=== PATIENT | male | born 1955 | race Caucasian/White ===

== ENCOUNTER → 2021-07-14 16:09 | Outpatient (CLI) | payer BC, SELFPAY ==
--- NOTE | 2021-07-14 16:29 | VDLE_ITS ---
Reason For Study: edema Procedure LEFT This is a venous duplex using B-mode, color GSV is normal. flow and spectral Doppler. CFV is compressible, spontaneous, phasic, Exam performed in department. competent, and demonstrates normal The exam was abbreviated due to the COVID 19 augmentation. protocol. FV is compressible, spontaneous, phasic, The exam was diagnostic. competent and demonstrates normal A preliminary report was called and/or faxed augmentation. to Dr. Mueller. POP V is compressible, spontaneous, phasic, competent and demonstrates normal augmentation. T/P Trunk is compressible. PTV is compressible. LT PerV is compressible. VL/Venous Duplex US, Unilateral Interpretation Summary There is no evidence of left lower extremity deep vein thrombosis. Left great s aphenous vein appears patent and compressible segmentally. Abreviated Covid 19 protocol utilized Ordering Physician: Kings Mueller Performed By: Jung Sosa RVT
== END ==
PROVIDERS: PCP Family Medicine Geriatric Medicine; Referring Provider Family Medicine Geriatric Medicine; Visit Provider Family Medicine Geriatric Medicine
DX: R60.0 Localized edema (principal)
CPT/HCPCS: 93971

== ENCOUNTER → 2021-07-14 16:43 | Outpatient (CLI) | payer BC, SELFPAY ==
[2021-07-14 17:13] LABS: Absolute Lymphocyte Count 1.23 X10^3/uL (0.83-4.51); Absolute Neutrophil Count 3.1 X10^3/uL (2.0-7.7); Basophil# 0.01 X10^3/uL; Basophil% 0.2 % (0-1); Eosinophil# 0.01 X10^3/uL; Eosinophils% 0.2 % (0-5); Hematocrit 15.9 % (40-54); Lymphocyte # 1.23 X10^3/ul (0.83-4.51); Lymphocyte % 25.5 % (19-41); Mean Corp Hgb Conc 21.4 g/dL (32-36); Mean Corpuscular Hgb 12.1 pg (27.0-32.0); Mean Corpuscular Volume 56.4 fL (80-94); Monocyte# 0.43 X10^3/uL; Monocyte% 8.9 % (0-10); NRBC Flagged by Analyzer 0.8 % (0-5); Neutrophil # 3.12 X10^3/uL (2.7-7.7); Neutrophil % 64.6 % (47-70); POSITIVE COUNT YES; POSITIVE MORPHOLOGY YES; Platelet Count 192 K/mm3 (150-450); RBC Distribution Width CV 22.9 % (11.6-14.6); RBC Distribution Width SD 44.3 fl (35.1-43.9); Red Blood Count 2.82 M/mm3 (4.6-6.2); White Blood Count 4.8 K/mm3 (4.4-11.0)
[2021-07-14 17:26] LABS: Differential Indicated SCAN CRITERIA MET; Hemoglobin 3.4 g/dL (13.0-16.5)
[2021-07-14 17:40] LABS: Differential Comment SCANNED
[2021-07-14 17:41] LABS: Anisocytosis 2+; Hypochromasia 4+; Schistocytes 1+
[2021-07-14 17:42] LABS: Crenated RBC 1+
[2021-07-14 17:43] LABS: Platelet Estimate ADEQUATE (ADEQ)
[2021-07-14 17:52] LABS: AST(SGOT) 22 U/L (15-37); Alanine Aminotransfer ALT/SGPT 25 U/L (16-61); Albumin, Serum 3.4 g/dL (3.2-5.0); Alkaline Phosphatase 61 U/L (45-117); Anion Gap 8 (5-15); BUN 10 mg/dL (7-18); BUN/Creat Ratio 12.1 RATIO (10-20); Calcium,Total 8.4 mg/dL (8.5-10.1); Chloride 105 mmol/L (98-107); Cholesterol 70 mg/dL (200); Creatinine, Serum 0.83 mg/dL (0.70-1.30); EST Glomerular Filtration Rate 99 mL/min (>60); Est Glom Filt Rate - Afr Amer 119 mL/min (>60); Globulin 3.5 g/dL (2.2-4.2); Glucose 100 mg/dL (74-106); High Density Lipoprotein 30 mg/dL; PSA,Total - Annual Screen 0.45 ng/mL (0.00-4.00); Potassium 4.4 mmol/L (3.5-5.1); Protein, Total 6.9 g/dL (6.4-8.2); Sodium Level 139 mmol/L (136-145); Thyroid Stim Hormone (TSH) 1.11 uIU/mL (0.358-3.74); Triglycerides 67 mg/dL; Very Low Density Lipoprotein 13 mg/dL (5-40)
[2021-07-15 09:05] LABS: Hepatitis C Antibody Non-Reactive (Nonreactive); Vitamin D,25 Hydroxy 54.1 ng/mL
[2021-07-15 15:38] LABS: Pathologist Review Reviewed
== END ==
PROVIDERS: PCP Family Medicine Geriatric Medicine; Visit Provider Family Medicine Geriatric Medicine
DX: Z00.00 Encounter for general adult medical examination without abnormal findings (principal); Z12.5 Encounter for screening for malignant neoplasm of prostate; E55.9 Vitamin D deficiency, unspecified; E78.49 Other hyperlipidemia; R53.83 Other fatigue
CPT/HCPCS: 36415; 80053; 80061; 82306; 84153; 84443; 85025; 86803; G0103

== ENCOUNTER → 2021-07-16 08:15 | Outpatient (CLI) | payer BC, SELFPAY ==
[2021-07-15 12:59] LABS: Absolute Lymphocyte Count 0.85 X10^3/uL (0.83-4.51); Absolute Neutrophil Count 4.6 X10^3/uL (2.0-7.7); Basophil# 0.02 X10^3/uL; Basophil% 0.3 % (0-1); Eosinophil# 0.01 X10^3/uL; Eosinophils% 0.2 % (0-5); Hematocrit 14.1 % (40-54); Lymphocyte # 0.85 X10^3/ul (0.83-4.51); Lymphocyte % 13.9 % (19-41); Mean Corp Hgb Conc 22.7 g/dL (32-36); Mean Corpuscular Hgb 12.2 pg (27.0-32.0); Mean Corpuscular Volume 53.6 fL (80-94); Monocyte# 0.63 X10^3/uL; Monocyte% 10.3 % (0-10); NRBC Flagged by Analyzer 0.8 % (0-5); Neutrophil # 4.58 X10^3/uL (2.7-7.7); Neutrophil % 74.6 % (47-70); POSITIVE COUNT YES; POSITIVE MORPHOLOGY YES; Platelet Count 197 K/mm3 (150-450); RBC Distribution Width CV 22.6 % (11.6-14.6); RBC Distribution Width SD 41.4 fl (35.1-43.9); RET-HE 12.8 pg (30-35); Red Blood Count 2.63 M/mm3 (4.6-6.2); Reticulocyte Count 2.12 % (0.5-1.5); White Blood Count 6.1 K/mm3 (4.4-11.0)
[2021-07-15 13:08] LABS: Vitamin B12 697 pg/mL (211-911)
[2021-07-15 13:21] LABS: Ferritin 1 ng/mL (26-388); Iron 9 ug/dL (65-175); Iron Binding Capacity,Total 402 ug/dL (250-450); PERCENT IRON SATURATION 2.2 % (15.0-55.0)
[2021-07-15 13:31] LABS: Differential Indicated SCAN CRITERIA MET; Hemoglobin 3.2 g/dL (13.0-16.5)
[2021-07-15 14:23] LABS: Platelet Estimate ADEQUATE (ADEQ)
[2021-07-15 14:24] LABS: Acanthocytes 1+; Anisocytosis 1+; Hypochromasia 4+; Schistocytes 1+
[2021-07-16] VITALS (7 sets, daily range): BP systolic 90–113; BP diastolic 43–76; PULSE 59–79; RESP 16; TEMP 35.8–36.4; O2SAT 100; BMI 27.7
[2021-07-16] MEDS: 0.9% NaCl Peripheral Flush Adult/Peds IV (09:05)
[2021-07-16] MEDS: Furosemide 20 MG/2 ML VIAL IV (11:32)
[2021-07-16 13:45] LABS: Pathologist Review Reviewed
== END ==
PROVIDERS: PCP Family Medicine Geriatric Medicine; Referring Provider Family Medicine Geriatric Medicine; Visit Provider Family Medicine Geriatric Medicine
DX: D64.9 Anemia, unspecified (principal)
CPT/HCPCS: 36415; 36430; 82607; 82728; 82746; 83540; 83550; 85025; 85045; 86850; 86900; 86901; 86920; 86922; J7040; P9016; A4216; J1940

== ENCOUNTER → 2021-07-17 13:21 | Outpatient (CLI) | payer BC, SELFPAY ==
[2021-07-17 13:36] LABS: Hematocrit 19.2 % (40-54); POSITIVE COUNT YES
== END ==
PROVIDERS: PCP Family Medicine Geriatric Medicine; Visit Provider Family Medicine Geriatric Medicine
DX: D50.9 Iron deficiency anemia, unspecified (principal)
CPT/HCPCS: 36415; 85014; 85018

== ENCOUNTER → 2021-07-20 | Outpatient (CLI) | payer BC, SELFPAY ==
[2021-07-20] VITALS (7 sets, daily range): BP systolic 97–121; BP diastolic 48–62; PULSE 56–80; RESP 16; TEMP 36.3–36.8; O2SAT 98–100; BMI 27.7
== END | disposition short-term general hospital (02) ==
LOC: MEDOUTP 08:21
PROVIDERS: PCP Family Medicine Geriatric Medicine; Referring Provider Physician Assistant; Visit Provider Physician Assistant
DX: D64.9 Anemia, unspecified (principal)
CPT/HCPCS: 36430; 86644; 86850; 86900; 86901; 86920; 86922; J7040; P9040; A4216

== ENCOUNTER 2021-07-21 09:54 | Outpatient (CLI) | payer BC, SELFPAY ==
[2021-07-21 10:09] LABS: Hematocrit 27.2 % (40-54); Hemoglobin 7.5 g/dL (13.0-16.5); Mean Corp Hgb Conc 27.6 g/dL (32-36); POSITIVE MORPHOLOGY YES; Platelet Count 136 K/mm3 (150-450); Red Blood Count 3.94 M/mm3 (4.6-6.2); White Blood Count 5.1 K/mm3 (4.4-11.0)
[2021-07-21 10:24] LABS: Scan Indicated on CBC? Y/N YES- FLAGS NOTED
[2021-07-21 10:31] LABS: Differential Comment SCANNED
== END 2021-07-21 23:59 | disposition short-term general hospital (02) ==
PROVIDERS: PCP Family Medicine Geriatric Medicine; Referring Provider Surgery; Visit Provider Surgery
DX: D50.0 Iron deficiency anemia secondary to blood loss (chronic) (principal)
CPT/HCPCS: 36415; 85027

== ENCOUNTER 2021-07-24 05:33 | Day surgery (SDC) | payer BC, SELFPAY ==
[2021-07-24 05:54] VITALS: BP 126/61; PULSE 74; RESP 18; TEMP 36.6; O2SAT 100; BMI 25.2
--- NOTE | 2021-07-24 05:57 | HP.PCM_ITS ---
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 Ambrose Rojo MD) BPH (benign prostatic hyperplasia) Hemorrhoid Hyperlipidemia Surgical History (Updated 07/20/21 @ 16:04 by Kiley Hermosillo) History of bilateral inguinal hernia repair (~2010) History of colonoscopy (~2010) History of umbilical hernia repair (~2010) History of wisdom tooth extraction Family History (Updated 07/20/21 @ 16:04 by Kiley Hermosillo) Father Diabetes Social History (Updated 07/20/21 @ 16:04 by Kiley Hermosillo) Smoking Status: Former smoker HPI HPI HPI: FRANDY AMBROSE, is a 65 M who presents to the office today for surgical consultation regarding anemia. The patient is referred by Dr. Kings Mueller and a written copy my surgical consult recommendations will return to him. It appears that on July 14, 2021 the patient had a hemoglobin of 3.4 and then on July 15, 2021 the hemoglobin was 3.2. He received 2 units of packed red cells and on July 17, 2021 his hemoglobin is 5 with hematocrit of 19.2. Most recent platelet count is 197,000. His reticulocyte count is elevated at 2.12 and immature reticulocyte fraction is elevated 23.7. BUN is 10 and creatinine 0.83. His iron level is markedly low at 9 with a TIBC normal at 402 iron saturation is low at 2.2 and ferritin is low at 1. Liver function tests were normal. Folate was normal at 10.1. The patient is on ferrous sulfate and pantoprazole and sucralfate and tamsulosin. At our instructions patient received additional 2 units of blood today. That has changed his office appointment time to later in the day. He notes that going all the way back to February 2021 he was fatigued with walking with his family and had to hold way back. He had a similar experience April 2021. He did not notify his primary care physician Dr. Mueller until just recently. He used to weigh at least 260 pounds. He is dropped down to approximately 195 pounds. He states he has been at this weight however for quite a period of time. He denies any abdominal pain. He denies bright red blood per rectum or melena. ROS General General: Yes weight change and fatigue; No appetite, colon cancer, breast cancer or weakness HEENT HEENT: No difficulty swallowing, eye injury, eye surgery, swollen glands or hoarseness Endo Endocrine: No thyroid disease, diabetes mellitus, thyroid cancer, Hair loss, heat intolerance or cold intolerance Musc Musculoskeletal: No back problems, arthritis, rheumatoid arthritis, gout or joint pain Cardio Cardiovascular: No murmur, pacemaker, heart disease, atrial fibrillation, high blood pressure, heart attack, heart stent, palpitations, shortness of breat with exertion or chest pain Psych Psychiatric: No depression, anxiety or hearing voices Resp Respiratory: No shortness of breath, No sleep apnea, No cough, No COPD, No asthma, No emphysema and No wheezing Gastro Gastrointestinal: No abdominal pain, No nausea or vomiting, No diarrhea, No constipation, No blood in stool, No acid reflux, Yes hemorrhoids, No ulcers, No gallbladder problem and No black,tarry stools Jacek Hematologic: No blood thinners, No blood disorders, No bleeding, Yes anemia and No blood clots Neuro Neurologic: No weakness Exam Const General: cooperative, comfortable and no acute distress Nutritional Appearance: average body habitus Orientation: alert and awake Other: Pale HENMT Head: normal to inspection Eyes General: appearance normal, both eyes and all related structures Chest Chest palpation & inspection: normal inspection of the chest Resp Effort & Inspection: normal respiratory effort Auscultation: clear to auscultation bilaterally Cardio Rate: regular rate Rhythm: regular rhythm Other: 2/6 systolic ejection murmur GI Palpation: soft Auscultation: normal bowel sounds Other: Very superficially tender umbilicus, he does not like this to be palpated, he guards his abdomen to palpation, suggestion of possible right hepatic enlargement but I cannot get a consistent exam, normal bowel sounds Other: Testicles are descended and atrophic, bilateral groin solid and intact on upright examination Musc Cervical Spine: normal cervical lordosis Skin Other: No open sores noted Neuro General: patient alert, patient awake and patient oriented x3 Extrem General: normal to inspection Psych Appearance: grossly normal Assessment and Plan Assessment and Plan (1) Anemia: Status: Acute Qualifiers: Anemia type: iron deficiency Iron deficiency anemia type: chronic blood loss Qualified Code(s): D50.0 - Iron deficiency anemia secondary to blood loss (chronic) Plan - Dr. Ambrose Rojo MD: Findings are very much consistent with her chronic blood loss iron deficiency anemia. I propose for the patient a combined esophagogastroduodenoscopy with possible biopsy and colonoscopy possible biopsy or polypectomy as indicated. He is aware of technique, benefit, risk of alternatives. We will try to schedule and expedite his care. We will recheck a CBC tomorrow morning. He has had an opportunity to ask and have questions answered. States that Tuesday he has a chest ultrasound ordered. He states that in the near future he also has not a abdominal ultrasound ordered. Copy: Dr. Kings Rojo M.D., F.A.C.S. Plan Details I have re-examined the patient. There are no clinical changes since date of exam. Ambrose Rojo M.D., F.A.C.S.
[2021-07-24] MEDS: Lactated Ringers 1,000 ML 15 ML IV (06:07)
--- NOTE | 2021-07-24 06:30 | EGD_PTH ---
PATIENT: FRANDY AMBROSE LOC: EN U#:[id number] AGE/SX: 65/M ROOM: RE07/24/[address]: Dr. Ambrose Rojo MD : 1955 BED: DIS: 07/24/2021 SPEC #: [id number] RECD: 07/24/21 09:45 STATUS: JONNA MARIA #: [id number] RENAY: 07/24/21 06:[address]: Ambrose Rojo DEPT: SURGICAL PATHOLOGY RECD BY: Leticia Han ENTERED: 07/24/21 11:31 SP TYPE: EGD BIOPSY [facility] DR: Dr. Kings Mueller MD Tissues: A - Duodenum, NOS B - Gastric mucous membrane C - Stomach, NOS D - Stomach, NOS Procedures: Surgery Specimen Level IV HEADER OPERATION: Colonoscopy, EGD ([facility] [place]OP DIAGNOSIS: Anemia TISSUE SUBMITTED: A ? Duodenum biopsy, B ? Antrum biopsy for H. pylori and path, C ? Greater curvature polyp biopsy, D ? GE junction biopsy MICROSCOPIC DIAGNOSIS A. Duodenum, biopsy: A fragment of duodenal mucosa with changes consistent with celiac disease. See microscopic description and comment. B. Antrum, biopsy: Mild gastritis. See microscopic description and comment. C. Greater curvature polyp, biopsy: Consistent with fundic gland polyp. D. GE junction, biopsy: Fragments of squamous epithelium, no pathologic diagnosis. SJ:óscar 07/27/2021 COMMENT A. Correlation with clinical, endoscopic findings and appropriate follow up are necessary. B. The results of immunohistochemistry for Helicobacter pylori will be reported separately ([id number]). Case has been reviewed in consultation with Dr. Daniels who concurs with the above diagnosis. IDC:AM MICROSCOPIC DESCRIPTION Slides are reviewed. A. The specimen shows a fragment of duodenal mucosa with flattening of villi, increased intraepithelial lymphocytes and mild chronic inflammatory cell infiltrates in the lamina propria consisting of lymphocytes and plasma cells. The findings are consistent with celiac disease. B. The specimen shows fragments of gastric mucosa with chronic inflammatory cell infiltrates in the lamina propria consisting of lymphocytes and plasma cells, consistent with mild chronic gastritis. GROSS DESCRIPTION A - Received in fixative is one container labeled with the patient's name and designated duodenum biopsy. The specimen consists of one irregular fragment of light langford soft tissue that measures 0.3 x 0.3 x 0.1 cm. The specimen is totally submitted in one cassette. B - Received in fixative is one container labeled with the patient's name and designated antrum biopsy. The specimen consists of one irregular fragment of light langford soft tissue that measures 0.6 x 0.2 x 0.1 cm. The specimen is totally submitted in one cassette. C - Received in fixative is one container labeled with the patient's name and designated greater curvature polyp biopsy. The specimen consists of two irregular fragments of light langford soft tissue that in aggregate measure 0.5 x 0.4 x 0.1 cm. The specimen is totally submitted in one cassette. D - Received in fixative is one container labeled with the patient's name and designated GE junction biopsy. The specimen consists of two irregular fragments of light langford soft tissue that in aggregate measure 0.5 x 0.3 x 0.1 cm. The specimen is totally submitted in one cassette. / SJ:rg 07/24/2021 TC:3 CPT: 18313 x4
--- NOTE | 2021-07-24 06:30 | IMM_PTH ---
PATIENT: FRANDY AMBROSE LOC: EN U#:[id number] AGE/SX: 65/M ROOM: RE07/24/[address]: Dr. Ambrose Rojo MD : 1955 BED: DIS: 07/24/2021 SPEC #: [id number] RECD: 07/24/21 13:47 STATUS: JONNA REQ #: [id number] RENAY: 07/24/21 06:[address]: Ambrose Rojo DEPT: IMMUNOHISTOCHEMISTRY RECD BY: Tangela Mott ENTERED: 07/24/21 13:47 SP TYPE: IMMUNO OTHR DR: Dr. Kings Mueller MD Tissues: B - Stomach, NOS Procedures: H Pylori (initial) PHYSICIAN & INSTITUTION [place] [id number] SPECIMEN INFORMATION: Tissue Source: B ? Antrum biopsy Clinical Info: Anemia Specimen Number: [id number] CPT code: 07378 METHODOLOGY: Deparaffinized sections of prefer/formalin-fixed tissue or PAP/DQ stained slides are incubated with monoclonal/polyclonal antibodies/oligonucleotide probes. Localization is made via biotin free immunoperoxidase method. Appropriate controls are performed and reacted as expected. Results on target cell population are indicated in the following table: RESULTS: ANTIBODY / CLONE RESULT Block B H Pylori (polyclonal) negative These tests were developed and their performance characteristics determined by [facility]. They may not have been cleared or approved by the U.S. Food and Drug Administration. The FDA has determined that such clearance or approval is not necessary. INTERPRETATION: B. Antrum biopsy: Negative for Helicobacter pylori organisms. SJ:óscar 07/27/2021
[2021-07-24 07:10] LABS: Hematocrit 26.6 % (40-54); Hemoglobin 7.4 g/dL (13.0-16.5)
[2021-07-24 07:14] VITALS: BP 107/59; BP 126/61; PULSE 66; RESP 16; TEMP 36; O2SAT 100
[2021-07-24 07:15] VITALS: BP 107/59; BP 126/61; PULSE 67; RESP 16; O2SAT 100
--- NOTE | 2021-07-24 07:17 | OP.EGD_ITS ---
Patient Name: Brendon Aguilera Procedure Date: 07/24/2021 6:26 AM Date of : 1955 Age: 65 Procedure: Upper GI endoscopy Indications: Iron deficiency anemia Providers: Ambrose Rojo MD Medicines: See the Anesthesia note for documentation of the administered medications Complications: No immediate complications. Procedure: Pre-Anesthesia Assessment: - Prior to the procedure, a History and Physical was performed, and patient medications and allergies were reviewed. The patient's tolerance of previous anesthesia was also reviewed. The risks and benefits of the procedure and the sedation options and risks were discussed with the patient. All questions were answered, and informed consent was obtained. Prior Anticoagulants: The patient has taken no previous anticoagulant or antiplatelet agents. ASA Grade Assessment: III - A patient with severe systemic disease. After reviewing the risks and benefits, the patient was deemed in satisfactory condition to undergo the procedure. After obtaining informed consent, the endoscope was passed under direct vision. Throughout the procedure, the patient's blood pressure, pulse, and oxygen saturations were monitored continuously. The Endoscope was introduced through the mouth, and advanced to the second part of duodenum. The upper GI endoscopy was accomplished without difficulty. The patient tolerated the procedure well. Scope In: 6:38:09 AM Scope Out: 6:44:11 AM Total Procedure Duration Time 0 hours 6 minutes 2 seconds Findings: The examined esophagus was normal. The Z-line was regular and was found 39 cm from the incisors. Biopsies were taken with a cold forceps for histology. A small hiatal hernia was present. A few sessile polyps with no bleeding and no stigmata of recent bleeding were found on the greater curvature of the stomach. The polyp was removed with a cold biopsy forceps. Resection and retrieval were complete. The gastric antrum was normal. Biopsies were taken with a cold forceps for histology. Diffuse mildly erythematous mucosa without active bleeding and with no stigmata of bleeding was found in the duodenal bulb. Biopsies were taken with a cold forceps for histology. Impression: - Normal esophagus. - Z-line regular, 39 cm from the incisors. Biopsied. - Small hiatal hernia. - A few gastric polyps. Resected and retrieved. - Normal antrum. Biopsied. - Erythematous duodenopathy. Biopsied. Recommendation: - Discharge patient to home. - Resume previous diet. - Continue present medications. - Return to my office in 10-12 days Procedure Code(s): --- Professional --- 87107, Esophagogastroduodenoscopy, flexible, transoral; with biopsy, single or multiple Diagnosis Code(s): --- Professional --- K44.9, Diaphragmatic hernia without obstruction or gangrene K31.7, Polyp of stomach and duodenum K31.89, Other diseases of stomach and duodenum D50.9, Iron deficiency anemia, unspecified CPT copyright 2017 [employer]. All rights reserved. The codes documented in this report are preliminary and upon clinical coder review may be revised to meet current compliance requirements. Ambrose Rojo MD 07/24/2021 7:16:40 AM This report has been signed electronically. Number of Addenda: 0 Note Initiated On: 07/24/2021 6:26 AM
--- NOTE | 2021-07-24 07:18 | OP.CCLET_ITS ---
07/24/2021 Kings Mueller MD [address] [place] [address] Re : Upper GI endoscopy procedure for Brendon Aguilera Dear Dr. Mueller This procedure was performed on Saturday, July 24, 2021. My impressions and recommendations are as follows: Impressions : - Normal esophagus. - Z-line regular, 39 cm from the incisors. Biopsied. - Small hiatal hernia. - A few gastric polyps. Resected and retrieved. - Normal antrum. Biopsied. - Erythematous duodenopathy. Biopsied. Recommendations : - Discharge patient to home. - Resume previous diet. - Continue present medications. - Return to my office in 10-12 days My findings are described in the full procedure note, which is enclosed. If I can be of further assistance, please feel free to contact me at Doctor phone number(s): Work: . Sincerely, Ambrose Rojo MD 07/24/2021 7:16:40 AM This report has been signed electronically.
--- NOTE | 2021-07-24 07:21 | OP.COLON_ITS ---
Patient Name: Brendon Aguilera Procedure Date: 07/24/2021 6:44 AM Date of : 1955 Age: 65 Procedure: Colonoscopy Indications: Acute post hemorrhagic anemia, Iron deficiency anemia Providers: Ambrose Rojo MD Medicines: Monitored Anesthesia Care Patient Profile: Last Colonoscopy: 2010. Complications: No immediate complications. Procedure: Pre-Anesthesia Assessment: - Prior to the procedure, a History and Physical was performed, and patient medications and allergies were reviewed. The patient's tolerance of previous anesthesia was also reviewed. The risks and benefits of the procedure and the sedation options and risks were discussed with the patient. All questions were answered, and informed consent was obtained. Prior Anticoagulants: The patient has taken no previous anticoagulant or antiplatelet agents. ASA Grade Assessment: III - A patient with severe systemic disease. After reviewing the risks and benefits, the patient was deemed in satisfactory condition to undergo the procedure. After I obtained informed consent, the scope was passed under direct vision. Throughout the procedure, the patient's blood pressure, pulse, and oxygen saturations were monitored continuously. The colonoscope was introduced through the anus and advanced to the cecum, identified by appendiceal orifice and ileocecal valve. The colonoscopy was performed with moderate difficulty due to a redundant colon. Successful completion of the procedure was aided by applying abdominal pressure. The patient tolerated the procedure well. The quality of the bowel preparation was good. Scope In: 6:47:25 AM Scope Withdrawal Time 0 hours 7 minutes 2 seconds Scope Out: 7:09:46 AM Total Procedure Duration Time 0 hours 22 minutes 21 seconds Findings: The digital rectal exam findings include decreased sphincter tone, non-thrombosed internal hemorrhoids and internal hemorrhoids that prolapse with straining, but require manual replacement into the anal canal (Grade III). Pertinent negatives include normal prostate (size, shape, and consistency). A few diverticula were found in the sigmoid colon. The colon (entire examined portion) was significantly tortuous. Advancing the scope required using manual pressure. The exam was otherwise without abnormality. Impression: - Decreased sphincter tone, non-thrombosed internal hemorrhoids and internal hemorrhoids that prolapse with straining, but require manual replacement into the anal canal (Grade III) found on digital rectal exam. - Diverticulosis in the sigmoid colon. - Tortuous colon. - The examination was otherwise normal. - No specimens collected. Recommendation: - Discharge patient to home. - Resume previous diet. - Continue present medications. - Repeat colonoscopy in 10 years for screening purposes. Procedure Code(s): --- Professional --- 73890, Colonoscopy, flexible; diagnostic, including collection of specimen(s) by brushing or washing, when performed (separate procedure) Diagnosis Code(s): --- Professional --- K62.89, Other specified diseases of anus and rectum K64.2, Third degree hemorrhoids D62, Acute posthemorrhagic anemia D50.9, Iron deficiency anemia, unspecified K57.30, Diverticulosis of large intestine without perforation or abscess without bleeding Q43.8, Other specified congenital malformations of intestine CPT copyright 2017 [employer]. All rights reserved. The codes documented in this report are preliminary and upon security infrastructure engineer review may be revised to meet current compliance requirements. Ambrose Rojo MD 07/24/2021 7:20:45 AM This report has been signed electronically. Number of Addenda: 0 Note Initiated On: 07/24/2021 6:44 AM
--- NOTE | 2021-07-24 07:21 | OP.CCLET_ITS ---
07/24/2021 Kings Mueller MD [address] [place] [address] Re : Colonoscopy procedure for Brendon Aguilera Dear Dr. Mueller This procedure was performed on Saturday, July 24, 2021. My impressions and recommendations are as follows: Impressions : - Decreased sphincter tone, non-thrombosed internal hemorrhoids and internal hemorrhoids that prolapse with straining, but require manual replacement into the anal canal (Grade III) found on digital rectal exam. - Diverticulosis in the sigmoid colon. - Tortuous colon. - The examination was otherwise normal. - No specimens collected. Recommendations : - Discharge patient to home. - Resume previous diet. - Continue present medications. - Repeat colonoscopy in 10 years for screening purposes. My findings are described in the full procedure note, which is enclosed. If I can be of further assistance, please feel free to contact me at Doctor phone number(s): Work: . Sincerely, Ambrose Rojo MD 07/24/2021 7:20:45 AM This report has been signed electronically.
[2021-07-24 07:23] VITALS: BP 111/66; BP 126/61; PULSE 61; RESP 16; O2SAT 100
[2021-07-24 07:25] VITALS: BP 122/70; BP 126/61; PULSE 65; RESP 16; TEMP 36.1; O2SAT 100
[2021-07-24 07:51] VITALS: BP 126/61
== END 2021-07-24 23:59 | disposition home or self-care (01) ==
LOC: EN 05:34 → AC 05:35
PROVIDERS: PCP Family Medicine Geriatric Medicine; Referring Provider Family Medicine Geriatric Medicine; Visit Provider Surgery
PROC: 0DJD8ZZ Inspection of Lower Intestinal Tract, Via Natural or Artificial Opening Endoscopic (ICD-10-PCS; CPT 45378; principal; 2021-07-24 06:25)
DX: K29.70 Gastritis, unspecified, without bleeding (principal); K31.7 Polyp of stomach and duodenum; K44.9 Diaphragmatic hernia without obstruction or gangrene; K57.30 Diverticulosis of large intestine without perforation or abscess without bleeding; K64.2 Third degree hemorrhoids; K62.89 Other specified diseases of anus and rectum; D62 Acute posthemorrhagic anemia; Z87.891 Personal history of nicotine dependence
CPT/HCPCS: 45378; 43239; 85014; 85018; 88305; 88342; J7120; J2405

== ENCOUNTER 2021-07-31 07:14 | Outpatient (CLI) | payer BC, SELFPAY ==
--- NOTE | 2021-07-31 07:17 | US_ITS ---
PROCEDURES: ULTRASOUND AORTA REASON FOR EXAM: Male, 65 years old. AAA screen TECHNIQUE: Ultrasound evaluation of the aorta was performed with real-time and static baldwin-scale imaging. COMPARISON: None. FINDINGS: There is atherosclerotic plaque formation of the abdominal aorta. Aorta measures: Proximal 1.6 cm. Middle 1.8 cm. Distal 1.6 cm. Aorta measure transversely: Proximal 2. cm. Middle 1.9 cm. Distal 2.2 cm. Right iliac artery measures: 1.2 cm. Right iliac artery measure transversely: 1.2 cm. Left iliac artery measures: 1.0 cm. Left iliac artery measure transversely: 1.2 cm. There is no demonstrated aneurysm.. US/Aorta IMPRESSION: Normal abdominal aorta. Atherosclerotic plaque formation. Electronically Signed: Lei Latham MD at 8:58 EST , Service support ,
== END 2021-07-31 23:59 | disposition short-term general hospital (02) ==
PROVIDERS: PCP Family Medicine Geriatric Medicine; Referring Provider Family Medicine Geriatric Medicine; Visit Provider Family Medicine Geriatric Medicine
DX: I71.4 Abdominal aortic aneurysm, without rupture (principal)
CPT/HCPCS: 76775

== ENCOUNTER 2021-07-31 08:08 | Outpatient (CLI) | payer BC, SELFPAY ==
[2021-07-31 08:16] VITALS: BP 129/62; PULSE 59; RESP 16; TEMP 36.3; O2SAT 100; BMI 25.7
[2021-07-31] MEDS: 0.9% NaCl IVPB Med Flush (250 mL) 15 ML IV (08:23)
[2021-07-31 09:43] VITALS: BP 122/69; PULSE 54; TEMP 36.3; O2SAT 100
== END 2021-07-31 23:59 | disposition short-term general hospital (02) ==
LOC: MEDOUTP 08:08
PROVIDERS: PCP Family Medicine Geriatric Medicine; Referring Provider Family Medicine Geriatric Medicine; Visit Provider Family Medicine Geriatric Medicine
DX: D50.9 Iron deficiency anemia, unspecified (principal)
CPT/HCPCS: 96365; J1756; J7050

== ENCOUNTER 2021-08-07 07:53 | Outpatient (CLI) | payer BC, SELFPAY ==
[2021-08-07] MEDS: 0.9% NaCl IVPB Med Flush (250 mL) 15 ML IV (08:10)
[2021-08-07] MEDS: 0.9% NaCl Peripheral Flush Adult/Peds IV (08:10)
[2021-08-07 08:17] VITALS: BP 103/51; PULSE 66; RESP 16; TEMP 35.8; O2SAT 100
[2021-08-07 08:56] VITALS: BP 115/53; PULSE 66; RESP 16; O2SAT 100
== END 2021-08-07 23:59 | disposition short-term general hospital (02) ==
LOC: MEDOUTP 07:53
PROVIDERS: PCP Family Medicine Geriatric Medicine; Referring Provider Family Medicine Geriatric Medicine; Visit Provider Family Medicine Geriatric Medicine
DX: D64.9 Anemia, unspecified (principal)
CPT/HCPCS: 96365; J1756; J7050; A4216

== ENCOUNTER 2021-08-13 14:14 | Outpatient (CLI) | payer BC, SELFPAY ==
[2021-08-13 17:30] LABS: Absolute Lymphocyte Count 1.17 X10^3/uL (0.83-4.51); Absolute Neutrophil Count 3.6 X10^3/uL (2.0-7.7); Basophil# 0.09 X10^3/uL; Basophil% 1.6 % (0-1); Eosinophil# 0.15 X10^3/uL; Eosinophils% 2.7 % (0-5); Hematocrit 31.1 % (40-54); Hemoglobin 8.6 g/dL (13.0-16.5); Lymphocyte # 1.17 X10^3/ul (0.83-4.51); Mean Corp Hgb Conc 27.7 g/dL (32-36); Mean Corpuscular Hgb 20.6 pg (27.0-32.0); Mean Corpuscular Volume 74.6 fL (80-94); Monocyte# 0.55 X10^3/uL; Monocyte% 9.9 % (0-10); NRBC Flagged by Analyzer 0 % (0-5); Neutrophil # 3.59 X10^3/uL (2.7-7.7); Neutrophil % 64.6 % (47-70); POSITIVE MORPHOLOGY YES; Platelet Count 365 K/mm3 (150-450); Red Blood Count 4.17 M/mm3 (4.6-6.2); White Blood Count 5.6 K/mm3 (4.4-11.0)
[2021-08-13 17:51] LABS: Differential Indicated SCAN CRITERIA MET
[2021-08-13 18:14] LABS: Anisocytosis 2+; Hypochromasia 2+; Platelet Estimate ADEQUATE (ADEQ); Red Cell Morphology N CHROM NORMAL (NORM C&C)
[2021-08-13 18:15] LABS: Microcytosis 2+; Rouleaux 1+
[2021-08-14 12:22] LABS: Pathologist Review Reviewed
== END 2021-08-13 23:59 | disposition short-term general hospital (02) ==
LOC: POLAB3 14:14
PROVIDERS: PCP Family Medicine Geriatric Medicine; Visit Provider Family Medicine Geriatric Medicine
DX: D64.9 Anemia, unspecified (principal)
CPT/HCPCS: 36415; 85025

== ENCOUNTER 2021-08-14 07:51 | Outpatient (CLI) | payer BC, SELFPAY ==
[2021-08-14 08:05] VITALS: BP 135/71; PULSE 79; RESP 16; TEMP 35.9; O2SAT 100
[2021-08-14] MEDS: 0.9% NaCl Peripheral Flush Adult/Peds IV (08:23)
[2021-08-14] MEDS: 0.9% NaCl IVPB Med Flush (250 mL) 15 ML IV (08:23)
[2021-08-14 09:08] VITALS: BP 111/55; PULSE 62
== END 2021-08-14 23:59 | disposition short-term general hospital (02) ==
LOC: MEDOUTP 07:51
PROVIDERS: PCP Family Medicine Geriatric Medicine; Referring Provider Family Medicine Geriatric Medicine; Visit Provider Family Medicine Geriatric Medicine
DX: D50.9 Iron deficiency anemia, unspecified (principal)
CPT/HCPCS: 96365; J1756; J7050; A4216

== ENCOUNTER 2021-08-21 07:46 | Outpatient (CLI) | payer BC, SELFPAY ==
[2021-08-21 07:51] VITALS: BP 125/68; PULSE 84; RESP 16; TEMP 35.9; O2SAT 97
[2021-08-21] MEDS: 0.9% NaCl Peripheral Flush Adult/Peds IV (07:53)
[2021-08-21] MEDS: 0.9% NaCl IVPB Med Flush (250 mL) 15 ML IV (07:54)
[2021-08-21 08:39] VITALS: BP 104/61; PULSE 59; O2SAT 100
== END 2021-08-21 23:59 | disposition short-term general hospital (02) ==
LOC: MEDOUTP 07:46
PROVIDERS: PCP Family Medicine Geriatric Medicine; Referring Provider Family Medicine Geriatric Medicine; Visit Provider Family Medicine Geriatric Medicine
DX: D64.9 Anemia, unspecified (principal)
CPT/HCPCS: 96365; J1756; J7050; A4216

== ENCOUNTER 2021-08-28 07:49 | Outpatient (CLI) | payer BC, SELFPAY ==
[2021-08-28 08:02] VITALS: BP 133/71; PULSE 79; RESP 16; TEMP 35.8; O2SAT 100
[2021-08-28] MEDS: 0.9% NaCl Peripheral Flush Adult/Peds IV (08:04)
[2021-08-28] MEDS: 0.9% NaCl IVPB Med Flush (250 mL) 15 ML IV (08:10)
== END 2021-08-28 23:59 | disposition home or self-care (01) ==
LOC: MEDOUTP 07:49
PROVIDERS: PCP Family Medicine Geriatric Medicine; Referring Provider Family Medicine Geriatric Medicine; Visit Provider Family Medicine Geriatric Medicine
DX: D64.9 Anemia, unspecified (principal)
CPT/HCPCS: 96365; J1756; J7050; A4216

== ENCOUNTER → 2022-01-12 | Outpatient (CLI) | payer BC, SELFPAY ==
[2022-01-12 11:58] LABS: Absolute Lymphocyte Count 1.37 X10^3/uL (0.83-4.51); Absolute Neutrophil Count 6.9 X10^3/uL (2.0-7.7); Basophil# 0.08 X10^3/uL; Basophil% 0.9 % (0-1); Eosinophils% 2.2 % (0-5); Hematocrit 44.3 % (40-54); Hemoglobin 13.3 g/dL (13.0-16.5); Lymphocyte # 1.37 X10^3/ul (0.83-4.51); Lymphocyte % 14.9 % (19-41); Mean Corpuscular Hgb 23.2 pg (27.0-32.0); Mean Corpuscular Volume 77.2 fL (80-94); Mean Platelet Vol. 9.8 fl (6.2-12.0); Monocyte# 0.63 X10^3/uL; Monocyte% 6.8 % (0-10); NRBC Flagged by Analyzer 0 % (0-5); Neutrophil # 6.87 X10^3/uL (2.7-7.7); Neutrophil % 74.7 % (47-70); Platelet Count 307 K/mm3 (150-450); RBC Distribution Width CV 18.7 % (11.6-14.6); RBC Distribution Width SD 49.2 fl (35.1-43.9); Red Blood Count 5.74 M/mm3 (4.6-6.2); White Blood Count 9.2 K/mm3 (4.4-11.0)
[2022-01-12 12:12] LABS: Vitamin D,25 Hydroxy 27.9 ng/mL
[2022-01-12 12:17] LABS: ALB/GLOB Ratio 0.9 RATIO (0.9-2.4); AST(SGOT) 16 U/L (15-37); Alanine Aminotransfer ALT/SGPT 27 U/L (16-61); Albumin, Serum 3.8 g/dL (3.2-5.0); Alkaline Phosphatase 78 U/L (45-117); Anion Gap 8 (5-15); BUN 13 mg/dL (7-18); BUN/Creat Ratio 15.1 RATIO (10-20); Calcium,Total 9.1 mg/dL (8.5-10.1); Chloride 104 mmol/L (98-107); Creatinine, Serum 0.86 mg/dL (0.70-1.30); EST Glomerular Filtration Rate 94 mL/min (>60); Est Glom Filt Rate - Afr Amer 113 mL/min (>60); Globulin 4.1 g/dL (2.2-4.2); Glucose 98 mg/dL (74-106); Potassium 4.3 mmol/L (3.5-5.1); Protein, Total 7.9 g/dL (6.4-8.2); Sodium Level 140 mmol/L (136-145); Thyroid Stim Hormone (TSH) 1.43 uIU/mL (0.358-3.74)
== END | disposition home or self-care (01) ==
PROVIDERS: PCP Family Medicine Geriatric Medicine; Visit Provider Family Medicine Geriatric Medicine
DX: D64.9 Anemia, unspecified (principal); E55.9 Vitamin D deficiency, unspecified; R53.83 Other fatigue
CPT/HCPCS: 36415; 80053; 82306; 84443; 85025

== ENCOUNTER → 2022-08-06 | Outpatient (CLI) | payer BC, SELFPAY ==
[2022-08-06 13:07] LABS: Absolute Lymphocyte Count 1.44 X10^3/uL (0.83-4.51); Absolute Neutrophil Count 6.5 X10^3/uL (2.0-7.7); Basophil# 0.08 X10^3/uL; Basophil% 0.9 % (0-1); Eosinophils% 3.3 % (0-5); Hematocrit 49.1 % (40-54); Hemoglobin 15.2 g/dL (13.0-16.5); Lymphocyte # 1.44 X10^3/ul (0.83-4.51); Lymphocyte % 15.7 % (19-41); Mean Corpuscular Hgb 24.3 pg (27.0-32.0); Mean Corpuscular Volume 78.6 fL (80-94); Mean Platelet Vol. 10.5 fl (6.2-12.0); Monocyte% 8.7 % (0-10); NRBC Flagged by Analyzer 0 % (0-5); Neutrophil # 6.51 X10^3/uL (2.7-7.7); Neutrophil % 71.1 % (47-70); Platelet Count 277 K/mm3 (150-450); RBC Distribution Width CV 17.7 % (11.6-14.6); RBC Distribution Width SD 47.6 fl (35.1-43.9); Red Blood Count 6.25 M/mm3 (4.6-6.2); White Blood Count 9.2 K/mm3 (4.4-11.0)
[2022-08-06 13:41] LABS: ALB/GLOB Ratio 0.9 RATIO (0.9-2.4); AST(SGOT) 21 U/L (15-37); Alanine Aminotransfer ALT/SGPT 32 U/L (16-61); Albumin, Serum 3.5 g/dL (3.2-5.0); Alkaline Phosphatase 83 U/L (45-117); Anion Gap 7 (5-15); BUN 11 mg/dL (7-18); BUN/Creat Ratio 10.1 RATIO (10-20); Calcium,Total 9.2 mg/dL (8.5-10.1); Chloride 102 mmol/L (98-107); Creatinine, Serum 1.09 mg/dL (0.70-1.30); EST Glomerular Filtration Rate 71 mL/min (>60); Est Glom Filt Rate - Afr Amer 86 mL/min (>60); Globulin 4.1 g/dL (2.2-4.2); Glucose 97 mg/dL (74-106); Potassium 4.2 mmol/L (3.5-5.1); Protein, Total 7.6 g/dL (6.4-8.2); Sodium Level 138 mmol/L (136-145); Thyroid Stim Hormone (TSH) 0.98 uIU/mL (0.358-3.74)
== END | disposition home or self-care (01) ==
LOC: POLAB3 09:31
PROVIDERS: PCP Family Medicine Geriatric Medicine; Visit Provider Family Medicine Geriatric Medicine
DX: R53.83 Other fatigue (principal); E55.9 Vitamin D deficiency, unspecified; Z12.5 Encounter for screening for malignant neoplasm of prostate
CPT/HCPCS: 36415; 80053; 82306; 84153; 84443; 85025; G0103

== ENCOUNTER → 2023-02-18 | Outpatient (CLI) | payer BC, SELFPAY ==
[2023-02-18 12:42] LABS: Absolute Neutrophil Count 6.4 X10^3/uL (2.0-7.7); Basophil# 0.09 X10^3/uL; Eosinophil# 0.39 X10^3/uL; Eosinophils% 4.3 % (0-5); Hematocrit 50.1 % (40-54); Lymphocyte % 15.5 % (19-41); Mean Corp Hgb Conc 31.9 g/dL (32-36); Mean Corpuscular Hgb 25.7 pg (27.0-32.0); Mean Corpuscular Volume 80.5 fL (80-94); Mean Platelet Vol. 10.9 fl (6.2-12.0); Monocyte% 7.8 % (0-10); NRBC Flagged by Analyzer 0 % (0-5); Neutrophil # 6.41 X10^3/uL (2.7-7.7); Neutrophil % 71.1 % (47-70); Platelet Count 286 K/mm3 (150-450); RBC Distribution Width CV 17.4 % (11.6-14.6); RBC Distribution Width SD 46.8 fl (35.1-43.9); Red Blood Count 6.22 M/mm3 (4.6-6.2)
[2023-02-18 13:02] LABS: ALB/GLOB Ratio 0.8 RATIO (0.9-2.4); AST(SGOT) 27 U/L (15-37); Alanine Aminotransfer ALT/SGPT 42 U/L (16-61); Albumin, Serum 3.3 g/dL (3.2-5.0); Alkaline Phosphatase 83 U/L (45-117); Anion Gap 5 (5-15); BUN 12 mg/dL (7-18); BUN/Creat Ratio 13.4 RATIO (10-20); Calcium,Total 8.8 mg/dL (8.5-10.1); Chloride 106 mmol/L (98-107); EST Glomerular Filtration Rate 89 mL/min (>60); Est Glom Filt Rate - Afr Amer 108 mL/min (>60); Globulin 3.9 g/dL (2.2-4.2); Glucose 127 mg/dL (74-106); Potassium 4.4 mmol/L (3.5-5.1); Protein, Total 7.2 g/dL (6.4-8.2); Sodium Level 139 mmol/L (136-145); Thyroid Stim Hormone (TSH) 0.63 uIU/mL (0.358-3.74)
[2023-02-18 13:11] LABS: Vitamin D,25 Hydroxy 27.7 ng/mL
== END | disposition home or self-care (01) ==
PROVIDERS: PCP Family Medicine Geriatric Medicine; Visit Provider Family Medicine Geriatric Medicine
DX: R53.83 Other fatigue (principal); E55.9 Vitamin D deficiency, unspecified
CPT/HCPCS: 36415; 80053; 82306; 84443; 85025

== ENCOUNTER → 2023-08-26 | Outpatient (CLI) | payer BC, SELFPAY ==
[2023-08-26 10:25] LABS: Absolute Lymphocyte Count 1.21 X10^3/uL (0.83-4.51); Absolute Neutrophil Count 5.6 X10^3/uL (2.0-7.7); Basophil# 0.07 X10^3/uL; Basophil% 0.9 % (0-1); Eosinophil# 0.18 X10^3/uL; Eosinophils% 2.4 % (0-5); Hematocrit 50.6 % (40-54); Hemoglobin 16.1 g/dL (13.0-16.5); Lymphocyte # 1.21 X10^3/ul (0.83-4.51); Lymphocyte % 15.9 % (19-41); Mean Corp Hgb Conc 31.8 g/dL (32-36); Mean Corpuscular Hgb 26.4 pg (27.0-32.0); Mean Platelet Vol. 10.6 fl (6.2-12.0); Monocyte# 0.57 X10^3/uL; Monocyte% 7.5 % (0-10); NRBC Flagged by Analyzer 0 % (0-5); Neutrophil # 5.57 X10^3/uL (2.7-7.7); Neutrophil % 72.9 % (47-70); Platelet Count 254 K/mm3 (150-450); RBC Distribution Width CV 15.9 % (11.6-14.6); RBC Distribution Width SD 46.5 fl (35.1-43.9); White Blood Count 7.6 K/mm3 (4.4-11.0)
[2023-08-26 11:05] LABS: AST(SGOT) 26 U/L (15-37); Alanine Aminotransfer ALT/SGPT 45 U/L (16-61); Albumin, Serum 3.6 g/dL (3.2-5.0); Alkaline Phosphatase 80 U/L (45-117); Anion Gap 5 (5-15); BUN 10 mg/dL (7-18); BUN/Creat Ratio 10.9 RATIO (10-20); Calcium,Total 9.3 mg/dL (8.5-10.1); Chloride 106 mmol/L (98-107); Creatinine, Serum 0.92 mg/dL (0.70-1.30); EST Glomerular Filtration Rate 87 mL/min (>60); Est Glom Filt Rate - Afr Amer 105 mL/min (>60); Globulin 3.6 g/dL (2.2-4.2); Glucose 115 mg/dL (74-106); PSA,Total - Annual Screen 0.99 ng/mL (0.00-4.00); Protein, Total 7.2 g/dL (6.4-8.2); Sodium Level 141 mmol/L (136-145); Thyroid Stim Hormone (TSH) 0.59 uIU/mL (0.358-3.74)
[2023-08-26 13:37] LABS: Vitamin D,25 Hydroxy 28.4 ng/mL
== END | disposition home or self-care (01) ==
LOC: POLAB3 09:01
PROVIDERS: PCP Family Medicine Geriatric Medicine; Visit Provider Family Medicine Geriatric Medicine
DX: Z12.5 Encounter for screening for malignant neoplasm of prostate (principal); E55.9 Vitamin D deficiency, unspecified; R53.83 Other fatigue
CPT/HCPCS: 36415; 80053; 82306; 84153; 84443; 85025; G0103

== ENCOUNTER → 2024-04-09 | Outpatient (CLI) | payer MEDICARE, SELFPAY ==
[2024-04-09 09:35] LABS: Absolute Lymphocyte Count 1.29 X10^3/uL (0.83-4.51); Basophil# 0.08 X10^3/uL; Basophil% 0.9 % (0-1); Eosinophil# 0.19 X10^3/uL; Eosinophils% 2.1 % (0-5); Hematocrit 50.5 % (40-54); Hemoglobin 16.5 g/dL (13.0-16.5); Lymphocyte # 1.29 X10^3/ul (0.83-4.51); Lymphocyte % 14.1 % (19-41); Mean Corp Hgb Conc 32.7 g/dL (32-36); Mean Corpuscular Hgb 27.7 pg (27.0-32.0); Mean Corpuscular Volume 84.7 fL (80-94); Mean Platelet Vol. 10.6 fl (6.2-12.0); Monocyte# 0.56 X10^3/uL; Monocyte% 6.1 % (0-10); NRBC Flagged by Analyzer 0 % (0-5); Neutrophil # 6.97 X10^3/uL (2.7-7.7); Neutrophil % 76.5 % (47-70); Platelet Count 248 K/mm3 (150-450); RBC Distribution Width CV 15.1 % (11.6-14.6); RBC Distribution Width SD 45.6 fl (35.1-43.9); Red Blood Count 5.96 M/mm3 (4.6-6.2); White Blood Count 9.1 K/mm3 (4.4-11.0)
[2024-04-09 10:06] LABS: Vitamin D,25 Hydroxy 29.5 ng/mL
[2024-04-09 10:13] LABS: ALB/GLOB Ratio 0.9 RATIO (0.9-2.4); AST(SGOT) 34 U/L (15-37); Alanine Aminotransfer ALT/SGPT 42 U/L (16-61); Albumin, Serum 3.3 g/dL (3.2-5.0); Alkaline Phosphatase 77 U/L (45-117); Anion Gap 6 (5-15); BUN 11 mg/dL (7-18); BUN/Creat Ratio 10.3 RATIO (10-20); Calcium,Total 9.4 mg/dL (8.5-10.1); Chloride 105 mmol/L (98-107); Creatinine, Serum 1.07 mg/dL (0.70-1.30); EST Glomerular Filtration Rate 73 mL/min (>60); Est Glom Filt Rate - Afr Amer 88 mL/min (>60); Globulin 3.7 g/dL (2.2-4.2); Glucose 150 mg/dL (74-106); Potassium 4.3 mmol/L (3.5-5.1); Sodium Level 141 mmol/L (136-145); Thyroid Stim Hormone (TSH) 0.614 uIU/mL (0.358-3.740)
== END | disposition home or self-care (01) ==
PROVIDERS: PCP Family Medicine Geriatric Medicine; Visit Provider Family Medicine Geriatric Medicine
DX: R53.83 Other fatigue (principal); E55.9 Vitamin D deficiency, unspecified
CPT/HCPCS: 36415; 80053; 82306; 84443; 85025

== ENCOUNTER → 2024-05-21 | Outpatient (CLI) | payer MEDICARE, SELFPAY | END | disposition home or self-care (01) | LOC: POLAB3 09:08 | PROVIDERS: PCP Family Medicine Geriatric Medicine; Referring Provider Family Medicine Geriatric Medicine; Visit Provider Family Medicine Geriatric Medicine | DX: I10 Essential (primary) hypertension (principal) ==

== ENCOUNTER → 2024-05-23 | Outpatient (CLI) | payer MEDICARE, SELFPAY ==
[2024-05-23 08:47] LABS: Anion Gap 6 (5-15); BUN 13 mg/dL (7-18); BUN/Creat Ratio 10.5 RATIO (10-20); Chloride 105 mmol/L (98-107); Creatinine, Serum 1.24 mg/dL (0.70-1.30); EST Glomerular Filtration Rate 61 mL/min (>60); Est Glom Filt Rate - Afr Amer 74 mL/min (>60); Glucose 167 mg/dL (74-106); Potassium 3.7 mmol/L (3.5-5.1); Sodium Level 137 mmol/L (136-145)
== END | disposition home or self-care (01) ==
PROVIDERS: PCP Family Medicine Geriatric Medicine; Referring Provider Family Medicine Geriatric Medicine; Visit Provider Family Medicine Geriatric Medicine
DX: I10 Essential (primary) hypertension (principal)
CPT/HCPCS: 36415; 80048

== ENCOUNTER → 2024-05-26 | Outpatient (CLI) | payer MEDICARE, SELFPAY ==
[2024-05-26 10:09] LABS: Hemoglobin A1c 6.8 % (3.8-5.6)
== END | disposition home or self-care (01) ==
PROVIDERS: PCP Family Medicine Geriatric Medicine; Referring Provider Family Medicine Geriatric Medicine; Visit Provider Family Medicine Geriatric Medicine
DX: R73.09 Other abnormal glucose (principal)
CPT/HCPCS: 36415; 83036

== ENCOUNTER → 2024-06-06 | Outpatient (CLI) | payer MEDICARE, SELFPAY ==
[2024-06-06 16:10] LABS: Microalbumin:Creatinine Ratio 107.8 mg/g CRE (<30 mg/g CRE)
== END | disposition home or self-care (01) ==
LOC: POLAB3 15:15
PROVIDERS: PCP Family Medicine Geriatric Medicine; Visit Provider Family Medicine Geriatric Medicine
DX: E11.65 Type 2 diabetes mellitus with hyperglycemia (principal)
CPT/HCPCS: 82043; 82570

== ENCOUNTER → 2024-08-27 | Outpatient (CLI) | payer MEDICARE, SELFPAY ==
[2024-08-27 09:46] LABS: Absolute Lymphocyte Count 1.21 X10^3/uL (0.83-4.51); Absolute Neutrophil Count 6.9 X10^3/uL (2.0-7.7); Basophil# 0.06 X10^3/uL; Basophil% 0.7 % (0-1); Eosinophil# 0.14 X10^3/uL; Eosinophils% 1.6 % (0-5); Hematocrit 46.8 % (40-54); Hemoglobin 15.4 g/dL (13.0-16.5); Lymphocyte # 1.21 X10^3/ul (0.83-4.51); Lymphocyte % 13.5 % (19-41); Mean Corp Hgb Conc 32.9 g/dL (32-36); Mean Corpuscular Hgb 28.8 pg (27.0-32.0); Mean Corpuscular Volume 87.5 fL (80-94); Monocyte# 0.62 X10^3/uL; Monocyte% 6.9 % (0-10); NRBC Flagged by Analyzer 0 % (0-5); Neutrophil # 6.92 X10^3/uL (2.7-7.7); Platelet Count 258 K/mm3 (150-450); RBC Distribution Width CV 14.3 % (11.6-14.6); RBC Distribution Width SD 45.4 fl (35.1-43.9); Red Blood Count 5.35 M/mm3 (4.6-6.2)
[2024-08-27 10:31] LABS: ALB/GLOB Ratio 0.9 RATIO (0.9-2.4); AST(SGOT) 29 U/L (15-37); Alanine Aminotransfer ALT/SGPT 38 U/L (16-61); Albumin, Serum 3.5 g/dL (3.2-5.0); Alkaline Phosphatase 62 U/L (45-117); Anion Gap 9 (5-15); BUN 19 mg/dL (7-18); BUN/Creat Ratio 15.4 RATIO (10-20); Calcium,Total 9.6 mg/dL (8.5-10.1); Chloride 106 mmol/L (98-107); Cholesterol 121 mg/dL (200); Creatinine, Serum 1.23 mg/dL (0.70-1.30); EST Glomerular Filtration Rate 62 mL/min (>60); Est Glom Filt Rate - Afr Amer 75 mL/min (>60); Globulin 3.9 g/dL (2.2-4.2); Glucose 122 mg/dL (74-106); High Density Lipoprotein 51 mg/dL; Potassium 4.5 mmol/L (3.5-5.1); Protein, Total 7.4 g/dL (6.4-8.2); Sodium Level 139 mmol/L (136-145); Thyroid Stim Hormone (TSH) 0.642 uIU/mL (0.358-3.740); Triglycerides 157 mg/dL; Very Low Density Lipoprotein 31 mg/dL (5-40)
[2024-08-27 12:07] LABS: Hemoglobin A1c 6.3 % (3.8-5.6)
== END | disposition home or self-care (01) ==
LOC: POLAB3 09:07
PROVIDERS: PCP Family Medicine Geriatric Medicine; Visit Provider Family Medicine Geriatric Medicine
DX: I10 Essential (primary) hypertension (principal); E11.65 Type 2 diabetes mellitus with hyperglycemia; E55.9 Vitamin D deficiency, unspecified; E78.5 Hyperlipidemia, unspecified
CPT/HCPCS: 36415; 80053; 80061; 82306; 83036; 84443; 85025

== ENCOUNTER → 2024-08-28 | Outpatient (CLI) | payer MEDICARE, SELFPAY ==
[2024-08-28 20:33] LABS: Microalbumin,Random Urine 41.4 mg/L (NO RANGE EST.); Microalbumin:Creatinine Ratio 16.2 mg/g CRE (<30 mg/g CRE)
== END | disposition home or self-care (01) ==
LOC: LABSPEC 15:02
PROVIDERS: PCP Family Medicine Geriatric Medicine; Referring Provider Family Medicine Geriatric Medicine; Visit Provider Family Medicine Geriatric Medicine
DX: E11.65 Type 2 diabetes mellitus with hyperglycemia (principal); I10 Essential (primary) hypertension; E55.9 Vitamin D deficiency, unspecified; E78.5 Hyperlipidemia, unspecified
CPT/HCPCS: 82043; 82570

== ENCOUNTER → 2025-02-28 | Outpatient (CLI) | payer MEDICARE, SELFPAY ==
[2025-02-28 10:44] LABS: Hematocrit 47.2 % (40-54); Hemoglobin 16.2 g/dL (13.0-16.5); Immature Granulocytes Count 0.010 X10^3/uL (0.0-0.0); Mean Corp Hgb Conc 34.3 g/dL (32-36); Mean Corpuscular Volume 84.9 fL (80-94); Mean Platelet Vol. 10.1 fl (6.2-12.0); NRBC Flagged by Analyzer 0 % (0-5); Platelet Count 258 K/mm3 (150-450); RBC Distribution Width CV 13.9 % (11.6-14.6); RBC Distribution Width SD 43.2 fl (35.1-43.9); Red Blood Count 5.56 M/mm3 (4.6-6.2); White Blood Count 6.9 K/mm3 (4.4-11.0)
[2025-02-28 12:45] LABS: AST(SGOT) 33 U/L (<=37); Alanine Aminotransfer ALT/SGPT 44 U/L (<=46); Albumin, Serum 4.2 g/dL (3.4-4.8); Alkaline Phosphatase 59 U/L (40-129); Anion Gap 12 (5-15); BUN 14 mg/dL (4-19); BUN/Creat Ratio 14.0 RATIO (10-20); Calcium,Total 9.8 mg/dL (7.6-11.0); Carbon Dioxide 22.9 mmol/L (21.0-32.0); Chloride 101 mmol/L (98-108); Globulin 2.9 g/dL (2.2-4.2); Glucose 122 mg/dL (70-99); PSA,Total - Annual Screen 0.86 ng/mL (0.02-4.00); Potassium 4.4 mmol/L (3.3-5.1); Vitamin D,25 Hydroxy 28.0 ng/mL (30-100)
[2025-02-28 13:05] LABS: Cholesterol 121 mg/dL (<=200); Low Density Lipoprotein Calc. 45 mg/dL; Triglycerides 125 mg/dL; Very Low Density Lipoprotein 25 mg/dL (5-40); cholesterol:hdl ratio screen 2.35
[2025-02-28 17:47] LABS: Xtra Tube Kwok EXTRA TUBE
== END | disposition home or self-care (01) ==
LOC: POLAB3 09:38
PROVIDERS: PCP Family Medicine Geriatric Medicine; Visit Provider Family Medicine Geriatric Medicine
DX: Z12.5 Encounter for screening for malignant neoplasm of prostate (principal); E11.22 Type 2 diabetes mellitus with diabetic chronic kidney disease; E11.65 Type 2 diabetes mellitus with hyperglycemia; E78.5 Hyperlipidemia, unspecified; E55.9 Vitamin D deficiency, unspecified; I10 Essential (primary) hypertension
CPT/HCPCS: 36415; 80053; 80061; 82306; 83036; 84153; 84443; 85025; G0103